=== PATIENT | female | born 1970 | race Caucasian/White ===

== ENCOUNTER 2016-06-17 13:41 | Outpatient (CLI) | payer OTHER ==
[2016-06-17 14:15] LABS: #Basophils 0.1 thou/uL (0.0-0.2); #Eosinphils 0.2 thou/uL (0.0-0.7); #Lymphocytes 1.6 thou/uL (1.20-3.40); #Monocytes 0.3 thou/uL (0.11-0.59); #Neutrophils 6.9 thou/uL (1.40-6.50); %Basophils 0.7 % (0.0-1.0); %Eosinophils 2.2 % (0.0-10.0); %Lymphocytes 17.2 % (21.0-51.0); %Monocytes 3.7 % (0.0-10.0); Hematocrit 44.6 % (36.0-47.0); Mean Platelet Volume 7.2 fL (7.4-10.4); Red Blood Cell (RBC) Count 4.88 mill/uL (4.20-5.40); White Blood Cell (WBC) Count 9.1 thou/uL (4.8-10.8)
[2016-06-17 14:31] LABS: ALT (SGPT) 42 U/L (0-55); AST (SGOT) 24 U/L (5-34); Alkaline Phosphatase 85 U/L (40-150); Anion Gap 17 mmol/L (10-20); BUN (Urea Nitrogen) 15 mg/dL (7.0-18.7); Bilirubin, Total 0.4 mg/dL (0.2-1.2); Calc. Creatinine Clearance 0 mL/min (70-130); Calcium 9.8 mg/dL (7.8-10.44); Carbon Dioxide 27 mmol/L (22-29); Chloride 102 mmol/L (98-107); Estimated GFR-MDRD 59; Globulin 2.7 g/dL (2.4-3.5)
== END 2016-06-17 13:42 | disposition home or self-care (01) ==
LOC: NAVSJIPCSP 13:41
PROVIDERS: ATTEND Internal Medicine
DX: I11.9 Hypertensive heart disease without heart failure (principal); K21.9 Gastro-esophageal reflux disease without esophagitis; Z79.899 Other long term (current) drug therapy
CPT/HCPCS: 80053; 85025

== ENCOUNTER 2017-01-04 18:00 | Emergency (ER) | payer OTHER ==
--- NOTE | 2017-01-04 21:04 | CT ---
CT BRAIN WITHOUT CONTRAST 01/04/17 HISTORY: Blunt trauma. COMPARISON: None. FINDINGS: There is a left lacunar hypodensity. No acute hemorrhage. No midline shift or mass effect. The paranasal sinuses and mastoids are clear. Possible left sided nasal bone fracture, age indetermi sulaiman. IMPRESSION: 1. 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 2. No intracranial hemorrhage. 3. Age indeterminate left nasal bone fracture. POS: [facility]
== END 2017-01-04 19:20 | disposition home or self-care (01) ==
LOC: NAV ERS 18:00
DX: S00.03XA Contusion of scalp, initial encounter (principal); I10 Essential (primary) hypertension; F41.9 Anxiety disorder, unspecified; F32.9 Major depressive disorder, single episode, unspecified; Z79.899 Other long term (current) drug therapy; Y04.2XXA Assault by strike against or bumped into by another person, initial encounter
CPT/HCPCS: 70450